=== PATIENT | female | born 1985 | race Two or more races ===

== ENCOUNTER 2021-07-21 18:39 | Emergency (ER) | payer MEDICAID ==
[~2021-07-21] VITALS: Ht 162.6 cm; Wt 88.5 kg
[2021-07-21 18:39] VITALS: BP 124/68
== END 2021-07-21 20:19 | disposition home or self-care (01) ==
LOC: ER 18:39
DX: S00.33XA Contusion of nose, initial encounter (principal); S00.12XA Contusion of left eyelid and periocular area, initial encounter; Y04.2XXA Assault by strike against or bumped into by another person, initial encounter; Y93.89 Activity, other specified; Y92.89 Other specified places as the place of occurrence of the external cause; Y99.8 Other external cause status

== ENCOUNTER 2025-02-01 21:15 | Emergency (ER) | payer MEDICAID ==
[~2025-02-01] VITALS: Ht 160 cm; Wt 86.3 kg
[2025-02-01 21:17] VITALS: BP 116/78; PULSE 101; RESP 16; TEMP 99.6; O2SAT 99
== END 2025-02-02 00:20 | disposition left against medical advice (07) ==
LOC: ER 21:15
DX: R10.20 Pelvic and perineal pain unspecified side (principal); Z79.899 Other long term (current) drug therapy